=== PATIENT | female | born 1955 | race Caucasian/White ===

== ENCOUNTER 2018-11-27 02:28 | Emergency (ER) | payer BC ==
[~2018-11-27] VITALS: Ht 157.5 cm; Wt 90.7 kg
[2018-11-27 02:30] VITALS: BP_SYST 159
--- NOTE | 2018-11-27 03:24 | NUR ---
Patient to ER bed 8 to gown for evaluation. Side rails up. Report given to CLAUDIA GAN.
--- NOTE | 2018-11-27 03:25 | NUR ---
Pt C/O burning upon urination and lower abd pain x 5 hours. Pt denies N/V/D or any other symptoms at this time. Vital signs stable, will continue to monitor. Pt is unable to produce a urine sample at this time.
[2018-11-27 03:27] LABS: EOSINOPHILS % (AUTO) 2.5 % (0.0-4.0); HEMOGLOBIN 13.5 g/dL (12.0-16.0); LYMPHOCYTES % (AUTO) 24.4 % (20.5-51.5); MEAN CORPUSCULAR HEMOGLOBIN 28 pg (27-31); MEAN CORPUSCULAR HGB CONC 33 % (32-36); MEAN CORPUSCULAR VOLUME 84 fL (79.0-98.0); MONOCYTES % (AUTO) 6.6 % (1.7-9.3); NEUTROPHILS % (AUTO) 65.6 % (40.0-70.0); PLATELET COUNT (AUTO) 306 K/uL (130-430); RED BLOOD CELL COUNT(AUTO) 4.88 MIL/uL (4.2-6.2); RED CELL DISTRIBUTION WIDTH 14.2 % (9.0-15.0)
[2018-11-27 03:28] LABS: BASOPHILS # (AUTO) 0.1 K/uL (0.0-0.2); BASOPHILS % (AUTO) 0.9 % (0.0-2.0); EOSINOPHILS # (AUTO) 0.3 K/uL (0.0-0.4); LYMPHOCYTES # (AUTO) 3.2 K/uL (1.0-5.5); MONOCYTES # (AUTO) 0.9 K/uL (0.0-1.0); NEUTROPHILS # (AUTO) 8.5 K/uL (1.8-7.7)
[2018-11-27 03:31] LABS: CALCIUM 9.6 mg/dL (8.4-11.0); CREATININE 0.77 mg/dL (0.55-1.30)
[2018-11-27 03:36] LABS: ALBUMIN 3.8 g/dL (3.4-4.8); TOTAL BILIRUBIN 0.4 mg/dL (0.0-1.0)
--- NOTE | 2018-11-27 04:25 | NUR ---
Pt is resting in wheelchair, no acute distress noted at this time. Will continue to monitor.
[2018-11-27 04:56] LABS: BILIRUBIN,URINE NEGATIVE (NEGATIVE); BLOOD, URINE 3+ (NEGATIVE); CLARITY/URINE CLEAR (CLEAR); COLOR,URINE YELLOW (YELLOW); GLUCOSE,URINE TRACE (NEGATIVE); KETONES,URINE NEGATIVE (NEGATIVE); LEUKOCYTE ESTERASE ,URINE 2+ (NEGATIVE); NITRITE, URINE NEGATIVE (NEGATIVE); PH,URINE 5.5 (5.0-8.0); PROTEIN URINE 2+ (NEGATIVE); UROBILINOGEN,URINE 0.2 (0.2-1.0)
[2018-11-27] MEDS ORDERED: KETOROLAC TROMETHAMINE 30 MG VIAL IVP ONE (05:00)
[2018-11-27 05:04] LABS: BACTERIA,URINE MODERATE /HPF (None Seen); RBC,URINE 50-80 /HPF (0-3); WBC,URINE 50-80 /HPF (0-3)
[2018-11-27] MEDS ORDERED: cefTRIAXone 1 GM IVPB PREMIX 50 ML IV ONE (05:30)
--- NOTE | 2018-11-27 05:39 | NUR ---
Pt is resting quietly in bed. Pt has been medicated for pain and given antibiotics via IV. Will continue to monitor.
[2018-11-27 06:40] VITALS: BP_SYST 159
== END 2018-11-27 06:40 | disposition home or self-care (01) ==
LOC: SED 02:28
DX: N30.90 Cystitis, unspecified without hematuria (principal); R73.9 Hyperglycemia, unspecified
CPT/HCPCS: 36415; 80053; 81000; 85025; 87086; 87186; 96365; 96375; 99283; J0696; J1885